=== PATIENT | male | born 2000 | race Two or more races ===

== ENCOUNTER 2018-12-18 21:02 | Emergency (ER) | payer OTHER ==
[2018-12-18] MEDS ORDERED: fentaNYL 100 MCG/2 ML INJ IVP ONE (21:08)
--- NOTE | 2018-12-18 21:14 | EDPHY ---
H & P Stated Complaint: R shoulder dislocation Time Seen by Provider: 12/18/18 21:05 HPI/ROS: CHIEF COMPLAINT: Suspected Right shoulder dislocation HISTORY OF PRESENT ILLNESS: 18-year-old male with no prior history of shoulder dislocation was performing press type of movement this evening when he felt immediate pain to his right shoulder. No direct trauma or fall. No prior history of similar. No paresthesia. No head injury. The weight bar did not fall onto him. PRIMARY CARE PROVIDER: REVIEW OF SYSTEMS: 10 systems reviewed and negative with the exception of the elements mentioned in the history of present illness PAST MEDICAL & SURGICAL HISTORY: No pertinent medical or surgical history SOCIAL HISTORY:Student PHYSICAL EXAM (Prior to examination, patient consented to physical exam, hands were washed and my usual and customary physical exam procedures followed) 1) GENERAL: Well-developed, well-nourished, alert and oriented. Appears uncomfortable. 2) HEAD: Normocephalic, atraumatic 3) HEENT: Pupils equal, round, reactive to light bilaterally. Sclera anicteric. 4) NECK: Full range of motion, no meningeal signs. 5) LUNGS: Clear auscultation bilaterally, no wheezes, no rhonchi, no retractions. 6) HEART: Regular rate and rhythm, no murmur, no heave, no gallop. 7) ABDOMEN: No guarding, no rebound, no focal tenderness, negative McBurney's, negative Doty's, negative Rovsing's, negative peritoneal sign, 8) MUSCULOSKELETAL: Right upper extremity: Lateral step-off anterior fullness. No axillary nerve dysfunction. Radial ulnar median nerve function intact distally. Brisk pulses distally. Moving all extremities, no focal areas of tenderness, no obvious trauma. No peripheral edema or discoloration. 9) BACK: No CVA tenderness, no midline vertebral tenderness, no fluctuance, no step-off, no obvious trauma, no visual or palpable abnormality. 10) SKIN: No rash, no petechiae. 11) Psychiatric: Patient is oriented X 3, there is no agitation. DIFFERENTIAL DIAGNOSIS: In no particular order including but not limited to fracture, sprain, strain, dislocation - Personal History Current Tetanus/Diphtheria Vaccine: Yes - Medical/Surgical History Hx Asthma: No Hx Chronic Respiratory Disease: No Hx Diabetes: No Hx Cardiac Disease: No Hx Renal Disease: No Hx Cirrhosis: No Hx Alcoholism: No Hx HIV/AIDS: No Hx Splenectomy or Spleen Trauma: No Other PMH: denies - Social History Smoking Status: Never smoked Constitutional: Initial Vital Signs Temperature (C) 36.5 C 12/18/18 21:06 Heart Rate 82 12/18/18 21:06 Respiratory Rate 18 12/18/18 21:06 Blood Pressure 128/65 H 12/18/18 21:06 O2 Sat (%) 100 12/18/18 21:06 O2 Delivery Mode Room Air Allergies/Adverse Reactions: No Known Allergies Allergy (Unverified 12/18/18 21:10) Home Medications: Medication Instructions Recorded NK [No Known Home Meds] 12/18/18 Medical Decision Making - Diagnostics Imaging Results: Imaging Impressions Shoulder X-Ray 12/18/18 21:06 Impression: Anterior shoulder dislocation. Shoulder X-Ray 12/18/18 21:25 Impression: Anatomic alignment following reduction. Images reviewed myself Procedures: Procedure: Dislocation reduction. The dislocation of the right shoulder was reduced using traction counter traction technique without complications. Post reduction the patient's neurovascular exam is normal. Post reduction x-ray demonstrates reduction of the joint to the anatomic position. The procedure was performed by myself. Procedure: Splint A sling splint was applied by ER security system technician. After application of the splint I returned and re-examined the patient. The splint was adequately immobilizing the joint and distal to the splint the patient's circulation and sensation were intact. Patient shows no signs of compartment syndrome. Was given orthopedic precautions. ED Course/Re-evaluation: Re-evaluation with serial exams. Neurovascular intact no evidence of axillary nerve dysfunction. Plan will be discharge, follow up with Orthopedics with my usual customary orthopedic precautions instructions. Care of patient under supervision of secondary supervising physician Dr Lucia with whom I discussed case. - Data Points Medications Given: Discontinued Medications Hydrocodone Bitart/Acetaminophen ([place] 5/325mg Prepack#6) 1 btl TAKEHOME EDNOW ONE Stop: 12/18/18 21:27 Last Admin: 12/18/18 22:05 Dose: 1 btl Fentanyl (Sublimaze) 100 mcg IVP EDNOW ONE Stop: 12/18/18 21:09 Last Admin: 12/18/18 21:13 Dose: 100 mcg Departure - Departure Disposition: Home, Routine, Self-Care Clinical Impression: Dislocation of right shoulder joint Condition: Good Instructions: Hydrocodone/Acetaminophen (By mouth), Shoulder Dislocation (ED) Additional Instructions: Return to the ER immediately if you experience discoloration, have worsening pain, numbness, tingling, or any other symptoms that concern you. If you received x-rays in the emergency department today, be advised, that ligamentous , tendon, muscular, and other non-bony injury cannot be fully ruled out. Try to keep your affected extremity elevated above the level of your chest, and keep cold packs on the affected area, for the next 48 hours. Referrals: Homero Guy MD [Medical Doctor] - 5-7 days, call for appt.
[2018-12-18] MEDS ORDERED: HYDROCOD/APAP 5/325 PREPACK#6 BTL TAKEHOME ONE (21:26)
[2018-12-18 22:12] VITALS: BP 118/70
== END 2018-12-18 22:11 | disposition home or self-care (01) ==
PROC: 0RSJXZZ Reposition Right Shoulder Joint, External Approach (ICD-10-PCS; principal; 2018-12-18)
DX: S43.004A Unspecified dislocation of right shoulder joint, initial encounter (principal); X50.9XXA Other and unspecified overexertion or strenuous movements or postures, initial encounter; Y93.B9 Activity, other involving muscle strengthening exercises; Y92.9 Unspecified place or not applicable; Y99.9 Unspecified external cause status
CPT/HCPCS: 96374; A4565; J3010